=== PATIENT | female | born 1980 | race Caucasian/White ===

== ENCOUNTER 2017-01-29 23:24 | Emergency (ER) | payer OTHER ==
[2017-01-30] MEDS ORDERED: SODIUM CHLORIDE 0.9% 500 ML IV STA (00:06)
[2017-01-30] MEDS ORDERED: methylPREDNISolone SOD SUCCI 250 MG in SODIUM CHLORIDE 0.9% 100 ML IVPB STA (00:06)
[2017-01-30] MEDS ORDERED: diphenhydrAMINE 50 MG/ML 1 ML VIAL IVP STA (00:06)
[2017-01-30] MEDS ORDERED: KETOROLAC 30 MG/ML 1 ML VIAL IVP STA (00:06)
[2017-01-30] MEDS ORDERED: METOCLOPRAMIDE 5 MG/ML 2 ML VIAL IVP STA (00:06)
--- NOTE | 2017-01-30 00:17 | ED ---
General Adult HPI - General Chief complaint: Headache Stated complaint: Migraine Time Seen by Provider: 01/30/17 00:02 Source: patient, RN notes reviewed, old records reviewed Mode of arrival: ambulatory Limitations: no limitations - History of Present Illness Initial comments: This is a 36-year-old female the headache, history of migraine headache, severe headaches. This is not her worst headache. She has a history again of migraines, she took a migraine medication at home with no help. Headaches for 2 days, mild nausea no vomiting no neurological deficits no fevers. - Related Data Allergies Allergy/AdvReac Type Severity Reaction Status Date / Time hydromorphone Allergy Rash/Hives Verified 01/29/17 23:38 Quinolones Allergy Hallucinati Verified 01/29/17 23:38 ons Review of Systems ROS Statement: Those systems with pertinent positive or pertinent negative responses have been documented in the HPI. ROS Other: All systems not noted in ROS Statement are negative. Past Medical History Additional Past Medical History / Comment(s): migraines, chavo's, History of Any Multi-Drug Resistant Organisms: None Reported Past Surgical History: Adenoidectomy, Bariatric Surgery, Tonsillectomy, Tubal Ligation Additional Past Surgical History / Comment(s): sinuses Past Psychological History: Anxiety, Depression Smoking Status: Never smoker Past Alcohol Use History: None Reported Past Drug Use History: None Reported General Exam Limitations: no limitations General appearance: alert, in no apparent distress Head exam: Present: atraumatic, normocephalic, normal inspection Eye exam: Present: normal appearance, PERRL, EOMI. Absent: scleral icterus, conjunctival injection, periorbital swelling ENT exam: Present: normal exam, mucous membranes moist Neck exam: Present: normal inspection. Absent: tenderness, meningismus, lymphadenopathy Respiratory exam: Present: normal lung sounds bilaterally. Absent: respiratory distress, wheezes, rales, rhonchi, stridor Cardiovascular Exam: Present: regular rate, normal rhythm, normal heart sounds. Absent: systolic murmur, diastolic murmur, rubs, gallop, clicks GI/Abdominal exam: Present: soft, normal bowel sounds. Absent: distended, tenderness, guarding, rebound, rigid Extremities exam: Present: normal inspection, full ROM, normal capillary refill. Absent: tenderness, pedal edema, joint swelling, calf tenderness Back exam: Present: normal inspection Neurological exam: Present: alert, oriented X3, CN II-XII intact Psychiatric exam: Present: normal affect, normal mood Skin exam: Present: warm, dry, intact, normal color. Absent: rash Course Vital Signs 01/29/17 01/30/17 01/30/17 23:30 00:54 01:50 Temperature 98.1 F Pulse Rate 65 61 62 Respiratory 20 18 18 Rate Blood Pressure 105/63 106/53 109/52 O2 Sat by Pulse 100 99 98 Oximetry 01/30/17 02:49 Temperature 98.3 F Pulse Rate Respiratory Rate Blood Pressure O2 Sat by Pulse Oximetry - Reevaluation(s) Reevaluation #1: Patient has full resolution of headache Medical Decision Making - Medical Decision Making 36 female ER for evaluation of headache. Patient does have continued history of headaches, headache at this point is resolved. Patient will be discharged home - Lab Data Lab Results 01/30/17 01/30/17 Range/Units 00:30 00:30 Urine Color Yellow Urine Appearance Clear (Clear) Urine pH 6.5 (5.0-8.0) Ur Specific [place] 1.029 (1.001-1.035) Urine Protein Trace H (Negative) Urine Glucose (UA) Negative (Negative) Urine Ketones Negative (Negative) Urine Blood Negative (Negative) Urine Nitrite Negative (Negative) Urine Bilirubin Negative (Negative) Urine Urobilinogen <2.0 (<2.0) mg/dL Ur Leukocyte Esterase Negative (Negative) Urine HCG, Qual Not Detected (Not Detectd) Disposition Clinical Impression: Headache Disposition: HOME SELF-CARE Condition: Good Instructions: Acute Headache (ED) Referrals: None,Stated [Primary Care Provider] - 1-2 days
[2017-01-30 00:39] LABS: Appearance,Urine Clear (Clear); Bilirubin,Urine Negative (Negative); Glucose,Urine (UA) Negative (Negative); Ketones,Urine Negative (Negative); Leukocyte Esterase,Urine Negative (Negative); Nitrite,Urine Negative (Negative); PH, Urine 6.5 (5.0-8.0); Protein,Urine Trace (Negative); Specific Gravity,Urine 1.029 (1.001-1.035); UA Billing (MACRO vs. MICRO) CHEM; Urobilinogen,Urine <2.0 mg/dL (<2.0)
[2017-01-30 00:55] VITALS: RESP 18
[2017-01-30] MEDS ORDERED: MORPHINE SULFATE 10 MG/ML SYRINGE IVP STA (02:00)
[2017-01-30] MEDS ORDERED: LORazepam 2 MG/ML SYRINGE IV STA (02:00)
[2017-01-30 02:11] VITALS: BP 109/52; PULSE 62
[2017-01-30 02:50] VITALS: TEMP 98.3
== END 2017-01-30 02:40 | disposition home or self-care (01) ==
LOC: EC 23:24
DX: R51 Headache (principal); Z88.5 Allergy status to narcotic agent; Z88.8 Allergy status to other drugs, medicaments and biological substances; Z86.69 Personal history of other diseases of the nervous system and sense organs
CPT/HCPCS: 81003; 81025; 87086; 99284; 96365; 96375 ×5; J2060; J1200; J2765; J2930; J2270; J1885

== ENCOUNTER 2017-07-21 17:55 | Emergency (ER) | payer OTHER ==
[2017-07-21] MEDS ORDERED: SODIUM CHLORIDE 0.9% 1,000 ML IV STA (19:11)
--- NOTE | 2017-07-21 19:28 | ED ---
General Adult HPI - General Chief complaint: Recheck/Abnormal Lab/Rx Stated complaint: fever/not able to see out of lt eye Time Seen by Provider: 07/21/17 18:54 Source: patient, RN notes reviewed Mode of arrival: wheelchair Limitations: no limitations - History of Present Illness Initial comments: This is a 36-year-old female who presents to the emergency department with multiple complaints. She states that she has had blurred vision in left eye for the past 7-10 days. She states that her entire line of vision is blurred, not localized to one area. She denies redness, foreign body sensation, itchiness and pain. She states that she has had a runny nose, decreased appetite and dizziness. She describes her dizziness as feeling "like I'm drunk. " She states that she hasn't eaten in the past 3 days. Patient states that she has been sleeping approximately 20 hours per day. Patient states that when she left the triage room to return to the waiting room she began to have a severe left-sided headache. She states she that she does have a history of migraines. She states that she takes Topamax, Imitrex, Fioricet and propanolol for her migraines. Patient states that she was on a high-dose of Effexor and that she was recently switched to Lexapro. She states that all of these symptoms began when she started taking Lexapro. 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 Denies fever, chills, chest pain, shortness of breath, abdominal pain, constipation or diarrhea, dysuria or hematuria, numbness or tingling. - Related Data Home Medications Medication Instructions Recorded Confirmed Butalb/Acetaminophen/Caffeine 1 tab PO Q4H PRN 07/21/17 07/21/17 [Fioricet 50-325-40] Cetirizine HCl [Zyrtec] 10 mg PO DAILY 07/21/17 07/21/17 Dextroamphetamine/Amphetamine 20 mg PO TID 07/21/17 07/21/17 [Adderall] Doxylamine Succinate [Unisom] 25 mg PO HS 07/21/17 07/21/17 Dramamine 1 tab PO DAILY PRN 07/21/17 07/21/17 Escitalopram [Lexapro] 10 mg PO DAILY 07/21/17 07/21/17 Fexofenadine HCl [Rosemarie Allergy] 180 mg PO DAILY 07/21/17 07/21/17 Fluticasone Nasal [place] [Flonase 2 spr EA NOSTRIL DAILY 07/21/17 07/21/17 Nasal [place]] Jet-Alert 1 tab PO DAILY 07/21/17 07/21/17 Levothyroxine Sodium [Synthroid] 100 mcg PO DAILY@1200 07/21/17 07/21/17 Levothyroxine Sodium [Synthroid] 150 mcg PO DAILY 07/21/17 07/21/17 Loratadine 10 mg PO DAILY 07/21/17 07/21/17 Montelukast [Singulair] 10 mg PO DAILY 07/21/17 07/21/17 Omeprazole 20 mg PO DAILY 07/21/17 07/21/17 Propranolol HCl 20 mg PO DAILY 07/21/17 07/21/17 Pseudoephedrine HCl [Sudafed] 30 mg PO Q4HR PRN 07/21/17 07/21/17 SUMAtriptan SUCCINATE [Imitrex] 50 mg PO DAILY PRN 07/21/17 07/21/17 Topiramate [Topamax] 25 mg PO HS 07/21/17 07/21/17 Venlafaxine HCl [Effexor] 75 mg PO BID 07/21/17 07/21/17 clonazePAM [KlonoPIN] 1 mg PO TID PRN 07/21/17 07/21/17 Allergies Allergy/AdvReac Type Severity Reaction Status Date / Time hydromorphone Allergy Rash/Hives Verified 07/21/17 19:12 Quinolones Allergy Hallucinati Verified 07/21/17 19:12 ons Review of Systems ROS Statement: Those systems with pertinent positive or pertinent negative responses have been documented in the HPI. ROS Other: All systems not noted in ROS Statement are negative. Past Medical History Past Medical History: No Reported History Additional Past Medical History / Comment(s): migraines, chavo's, History of Any Multi-Drug Resistant Organisms: None Reported Past Surgical History: Adenoidectomy, Bariatric Surgery, Tonsillectomy, Tubal Ligation Additional Past Surgical History / Comment(s): sinuses Past Psychological History: Anxiety, Depression Smoking Status: Never smoker Past Alcohol Use History: Occasional Past Drug Use History: None Reported General Exam - General Exam Comments Initial Comments: General: Awake and alert, well-developed; in no apparent distress. HEENT: Head atraumatic, normocephalic. Pupils are equal, round and reactive to light. Extraocular movements intact. Oropharynx moist without erythema or exudate. Neck: Supple. Normal ROM. Cardiovascular: Regular rate and rhythm. No murmurs, rubs or gallops. Chest symmetrical. Respiratory: Lungs clear to auscultation bilaterally. No wheezes, rales or rhonchi. Normal respiratory effort with no use of accessory muscles. Abdomen: Soft, non-tender, non-distended. No rigidity, rebound or guarding. Normal bowel sounds in all 4 quadrants. Musculoskeletal: Normal ROM, no tenderness bilateral upper and lower extremities. Skin: [place], warm and dry without rashes or lesions. Neurological: Alert and oriented x3. CN II-XII grossly intact. Speech is fluent and answers are appropriate. No focal neuro deficits. Psychiatric: Normal mood and affect. No overt signs of depression or anxiety noted. Limitations: no limitations Course Vital Signs 07/21/17 07/21/17 18:00 21:00 Temperature 96.9 F L 98.6 F Pulse Rate 93 72 Respiratory 18 18 Rate Blood Pressure 90/59 96/51 O2 Sat by Pulse 100 100 Oximetry Medical Decision Making - Medical Decision Making This is a 36-year-old female who presented to the emergency department with multiple chief complaints. She complained of blurred vision in the left eye as well as left-sided migraine. CT brain revealed no acute abnormalities. Patient also complained of feeling more tired than usual, decreased appetite and vomiting. CBC, CMP and UA were within normal limits. Patient had a low TSH of less than 0.015 and a T4 of 3.36. T4 is slightly elevated. Patient states that she is on Synthroid. Patient will be discharged home. Recommended follow-up with her primary care provider to adjust the dose of her Synthroid. Return parameters were discussed. Patient is in agreement with plan voices understanding. All questions were answered. - Lab Data Result diagrams: 07/21/17 19:27 07/21/17 19:27 Lab Results 07/21/17 07/21/17 07/21/17 Range/Units 19:23 19:27 19:27 WBC 4.2 (3.8-10.6) k/uL RBC 4.29 (3.80-5.40) m/uL Hgb 12.8 (11.4-16.0) gm/dL Hct 39.4 (34.0-46.0) % MCV 91.8 (80.0-100.0) fL MCH 29.9 (25.0-35.0) pg MCHC 32.6 (31.0-37.0) g/dL RDW 12.0 (11.5-15.5) % Plt Count 282 (150-450) k/uL Neutrophils % 35 % Lymphocytes % 56 % Monocytes % 5 % Eosinophils % 1 % Basophils % 0 % Neutrophils # 1.5 (1.3-7.7) k/uL Lymphocytes # 2.3 (1.0-4.8) k/uL Monocytes # 0.2 (0-1.0) k/uL Eosinophils # 0.1 (0-0.7) k/uL Basophils # 0.0 (0-0.2) k/uL Manual Slide Review Performed Sodium 139 (137-145) mmol/L Potassium 3.5 (3.5-5.1) mmol/L Chloride 108 H (98-107) mmol/L Carbon Dioxide 20 L (22-30) mmol/L Anion Gap 11 mmol/L BUN 6 L (7-17) mg/dL Creatinine 0.60 (0.52-1.04) mg/dL Est GFR (MDRD) Af Amer >60 (>60 ml/min/1.73 sqM) Est GFR (MDRD) Non-Af >60 (>60 ml/min/1.73 sqM) Glucose 93 (74-99) mg/dL Calcium 9.1 (8.4-10.2) mg/dL Total Bilirubin 0.2 (0.2-1.3) mg/dL AST 20 (14-36) U/L ALT 67 H (9-52) U/L Alkaline Phosphatase 103 (38-126) U/L Total Protein 6.3 (6.3-8.2) g/dL Albumin 3.5 (3.5-5.0) g/dL TSH <0.015 L (0.465-4.680) mIU/L Free T4 3.36 H (0.78-2.19) ng/dL Urine Color Urine Appearance (Clear) Urine pH (5.0-8.0) Ur Specific [place] (1.001-1.035) Urine Protein (Negative) Urine Glucose (UA) (Negative) Urine Ketones (Negative) Urine Blood (Negative) Urine Nitrite (Negative) Urine Bilirubin (Negative) Urine Urobilinogen (<2.0) mg/dL Ur Leukocyte Esterase (Negative) Urine RBC (0-5) /hpf Urine WBC (0-5) /hpf Ur Squamous Epith Cells (0-4) /hpf Calcium Oxalate Crystal (None) /hpf Urine Bacteria (None) /hpf Hyaline Casts (0-2) /lpf Urine Mucus (None) /hpf Urine HCG, Qual (Not Detectd) Influenza Type A RNA Not Detected (Not Detectd) Influenza Type B (PCR) Not Detected (Not Detectd) 07/21/17 07/21/17 Range/Units 19:38 19:38 WBC (3.8-10.6) k/uL RBC (3.80-5.40) m/uL Hgb (11.4-16.0) gm/dL Hct (34.0-46.0) % MCV (80.0-100.0) fL MCH (25.0-35.0) pg MCHC (31.0-37.0) g/dL RDW (11.5-15.5) % Plt Count (150-450) k/uL Neutrophils % % Lymphocytes % % Monocytes % % Eosinophils % % Basophils % % Neutrophils # (1.3-7.7) k/uL Lymphocytes # (1.0-4.8) k/uL Monocytes # (0-1.0) k/uL Eosinophils # (0-0.7) k/uL Basophils # (0-0.2) k/uL Manual Slide Review Sodium (137-145) mmol/L Potassium (3.5-5.1) mmol/L Chloride (98-107) mmol/L Carbon Dioxide (22-30) mmol/L Anion Gap mmol/L BUN (7-17) mg/dL Creatinine (0.52-1.04) mg/dL Est GFR (MDRD) Af Amer (>60 ml/min/1.73 sqM) Est GFR (MDRD) Non-Af (>60 ml/min/1.73 sqM) Glucose (74-99) mg/dL Calcium (8.4-10.2) mg/dL Total Bilirubin (0.2-1.3) mg/dL AST (14-36) U/L ALT (9-52) U/L Alkaline Phosphatase (38-126) U/L Total Protein (6.3-8.2) g/dL Albumin (3.5-5.0) g/dL TSH (0.465-4.680) mIU/L Free T4 (0.78-2.19) ng/dL Urine Color Yellow Urine Appearance Cloudy H (Clear) Urine pH 6.0 (5.0-8.0) Ur Specific [place] 1.023 (1.001-1.035) Urine Protein Trace H (Negative) Urine Glucose (UA) Trace H (Negative) Urine Ketones Trace H (Negative) Urine Blood Negative (Negative) Urine Nitrite Negative (Negative) Urine Bilirubin Negative (Negative) Urine Urobilinogen <2.0 (<2.0) mg/dL Ur Leukocyte Esterase Negative (Negative) Urine RBC 1 (0-5) /hpf Urine WBC 3 (0-5) /hpf Ur Squamous Epith Cells 1 (0-4) /hpf Calcium Oxalate Crystal Occasional H (None) /hpf Urine Bacteria Rare H (None) /hpf Hyaline Casts 11 H (0-2) /lpf Urine Mucus Rare H (None) /hpf Urine HCG, Qual Not Detected (Not Detectd) Influenza Type A RNA (Not Detectd) Influenza Type B (PCR) (Not Detectd) - Radiology Data Radiology results: report reviewed CT brain without contrast impression: No acute intracranial hemorrhage, mass effect or midline shift is seen. Disposition Clinical Impression: Elevated serum free T4 level Disposition: HOME SELF-CARE Condition: Good Instructions: Hypothyroidism (ED) Additional Instructions: Please follow up with primary care provider within 1-2 days. Return to emergency department if symptoms should worsen or any concerns arise. Referrals: Papi Fuchs DO [Primary Care Provider] - 1-2 days Time of Disposition: 21:20
[2017-07-21 19:43] LABS: Basophils % (A) 0 %; CH 30.3; CHCM 33.1; Eosinophils # (A) 0.1 k/uL (0-0.7); Eosinophils % (A) 1 %; HCT 39.4 % (34.0-46.0); HDW 2.54; HGB 12.8 gm/dL (11.4-16.0); Luc # (Auto) 0.12; Luc % (Auto) 3; Lymphocytes # (A) 2.3 k/uL (1.0-4.8); Lymphocytes % (A) 56 %; MCH 29.9 pg (25.0-35.0); MCHC 32.6 g/dL (31.0-37.0); MCV 91.8 fL (80.0-100.0); Mean Platelet Volume 7.5; Monocytes # (A) 0.2 k/uL (0-1.0); Monocytes % (A) 5 %; Neutrophils # (A) 1.5 k/uL (1.3-7.7); Neutrophils % (A) 35 %; RBC 4.29 m/uL (3.80-5.40); WBC 4.2 k/uL (3.8-10.6); WBC (Perox) 3.98
[2017-07-21 19:52] LABS: Appearance,Urine Cloudy (Clear); Bacteria,Urine Rare /hpf; Bilirubin,Urine Negative (Negative); Calcium Oxalate Crystals,Urine Occasional /hpf; Glucose,Urine (UA) Trace (Negative); Ketones,Urine Trace (Negative); Leukocyte Esterase,Urine Negative (Negative); Mucus,Urine Rare /hpf; Nitrite,Urine Negative (Negative); Particle Count 3477; Protein,Urine Trace (Negative); RBC,Urine 1 /hpf (0-5); Specific Gravity,Urine 1.023 (1.001-1.035); Squamous Epithelial Cell,Urine 1 /hpf (0-4); UA Billing (MACRO vs. MICRO) MICRO; Urobilinogen,Urine <2.0 mg/dL (<2.0); WBC,Urine 3 /hpf (0-5)
[2017-07-21 19:55] LABS: ALT 67 U/L (9-52); AST 20 U/L (14-36); Alkaline Phosphatase 103 U/L (38-126); Anion Gap 11 mmol/L; Blood Urea Nitrogen 6 mg/dL (7-17); Calcium 9.1 mg/dL (8.4-10.2); Carbon Dioxide 20 mmol/L (22-30); Chloride 108 mmol/L (98-107); Glucose 93 mg/dL (74-99); Non-African American GFR(MDRD) >60 (>60 ml/min/1.73 sqM); Potassium 3.5 mmol/L (3.5-5.1); Sodium 139 mmol/L (137-145); Total Bilirubin 0.2 mg/dL (0.2-1.3); Total Protein 6.3 g/dL (6.3-8.2)
[2017-07-21 20:12] LABS: Manual Review Performed
--- NOTE | 2017-07-21 20:34 | CT ---
EXAMINATION TYPE: CT brain wo con DATE OF EXAM: 07/21/2017 COMPARISON: NONE HISTORY: Left sided head pressure and difficulty seeing out of both eyes, worse on left. CT DLP: 1025.90 mGycm. Automated Exposure Control for Dose Reduction was Utilized. TECHNIQUE: CT scan of the head is performed without contrast. FINDINGS: There is no acute intracranial hemorrhage, mass effect, or midline shift identified. The ventricles and sulci are within normal limits in size. The globes are intact bilaterally. Visualize d sinuses are predominantly clear. Hyperostosis frontalis is present. Intraconal fat is preserved pantera aterally. Suprasellar cistern is maintained. There is evidence of prior surgery level ostiomeatal com plex bilaterally. Mild residual mucosal thickening in central ethmoid sinuses bilaterally is present. IMPRESSION: No acute intracranial hemorrhage, mass effect, or midline shift is seen.
[2017-07-21 21:53] VITALS: BP 98/56; PULSE 88; RESP 20; TEMP 98.1
== END 2017-07-21 21:45 | disposition home or self-care (01) ==
LOC: EC 17:55
DX: R94.6 Abnormal results of thyroid function studies (principal); R11.10 Vomiting, unspecified; H53.8 Other visual disturbances; F41.9 Anxiety disorder, unspecified; F32.9 Major depressive disorder, single episode, unspecified; Z98.84 Bariatric surgery status; Z98.51 Tubal ligation status; E06.3 Autoimmune thyroiditis; Z79.51 Long term (current) use of inhaled steroids; Z79.899 Other long term (current) drug therapy; Z88.1 Allergy status to other antibiotic agents; Z88.5 Allergy status to narcotic agent
CPT/HCPCS: 36415; 70450; 80053; 81001; 81025; 84439; 84443; 85025; 87502; 96360; 99284